=== PATIENT | male | born 1995 | race Caucasian/White ===

== ENCOUNTER 2018-02-24 16:10 | Emergency (ER) | payer SELFPAY ==
[~2018-02-24] VITALS: Ht 182.9 cm; Wt 68.0 kg
[2018-02-24 20:08] VITALS: BP 112/74
== END 2018-02-24 20:12 | disposition home or self-care (01) ==
LOC: ER 16:10
DX: R21 Rash and other nonspecific skin eruption (principal); L29.9 Pruritus, unspecified
CPT/HCPCS: 99283

== ENCOUNTER 2021-04-25 00:52 | Emergency (ER) | payer MEDICAID ==
[~2021-04-25] VITALS: Ht 182.9 cm; Wt 70.0 kg
[2021-04-25 01:29] VITALS: BP 128/77
[2021-04-25] MEDS ORDERED: IBUPROFEN 600MG TABLET PO ONE (01:30)
[2021-04-25] MEDS ORDERED: BACITRACIN ZINC OINT UDPKT TOP ONE (01:30)
[2021-04-25] MEDS ORDERED: LIDOCAINE HCL/PF 1% 10 MG/ML 5ML VIAL INFIL ONE (01:30)
[2021-04-25] MEDS ORDERED: TETANUS, DIPHTHERIA, PERTUSSIS VAC/PF 0.5ML (>7YR OLD) IM ONE (01:30)
[2021-04-25] MEDS ORDERED: BO1 TP (02:00)
[2021-04-25] MEDS ORDERED: IBUP-2029 MT (02:00)
== END 2021-04-25 04:32 | disposition home or self-care (01) ==
LOC: ER 00:52
DX: S61.412A Laceration without foreign body of left hand, initial encounter (principal); W26.0XXA Contact with knife, initial encounter; Y93.89 Activity, other specified; Y92.9 Unspecified place or not applicable
CPT/HCPCS: 12002; 90471; 90715; 99283; J3490